=== PATIENT | male | born 1995 | race Caucasian/White ===

== ENCOUNTER 2018-08-29 22:36 | Emergency (ER) | payer OTHER, MEDICAID, SELFPAY ==
[2018-08-29 22:37] VITALS: BP 140/90; PULSE 91; RESP 18; TEMP 37.1; O2SAT 96; BMI 29.1
--- NOTE | 2018-08-29 23:15 | ED.VISSUMM ---
- ER Visit Summary Date of Service: 08/29/18 Chief Complaint: Dental pain History of Present Illness: The patient is a 23 M with dental pain. This has been going on for months. Secondary to the fracture. Patient is concerned for swelling and possible infection. No other associated symptoms. He does not have a dentist. Physical Examination: Afebrile and vital signs unremarkable. Patient has fractured teeth secondary to underlying decay, teeth #18 and 19. No tongue swelling or lesions. No mouth lesions. Airway intact. No tongue elevation. No trismus. No lymphadenopathy or meningeal signs. Skin normal. Test Results: None indicated Emergency Department Course and Treatment: Patient was treated with a course of Pen-Vee K and naproxen. He did receive 1 [place] here. He was referred to dental for follow-up. Treatment Plan: As above Disposition: Discharge Impression: 1. Dental pain This note was generated with [email or web address] dictation software. It may contain incorrect words, spelling, and punctuation that were not noted in review of the chart prior to signing ED Disposition - Plan for ED Patient: Referrals: Care Physician,No Primary [Primary Care Provider] -
--- NOTE | 2018-08-29 23:20 | ED.DCSUM_ITS ---
- ER Visit Summary Date of Service: 08/29/18 Chief Complaint: Dental pain History of Present Illness: The patient is a 23 M with dental pain. This has been going on for months. Secondary to the fracture. Patient is concerned for swelling and possible infection. No other associated symptoms. He does not have a dentist. Physical Examination: Afebrile and vital signs unremarkable. Patient has fractured teeth secondary to underlying decay, teeth #18 and 19. No tongue swelling or lesions. No mouth lesions. Airway intact. No tongue elevation. No trismus. No lymphadenopathy or meningeal signs. Skin normal. Test Results: None indicated Emergency Department Course and Treatment: Patient was treated with a course of Pen-Vee K and naproxen. He did receive 1 [place] here. He was referred to dental for follow-up. Treatment Plan: As above Disposition: Discharge Impression: 1. Dental pain This note was generated with [employer] dictation software. It may contain incorrect words, spelling, and punctuation that were not noted in review of the chart prior to signing ED Disposition - Plan for ED Patient: Referrals: Care Physician,No Primary [Primary Care Provider] -
[2018-08-29] MEDS: HYDROcodone Bitartrate/Apap 5/325 Tablet PO (23:21)
[2018-08-29] MEDS: Penicillin Vk 250 MG Tablet 500 MG PO (23:21)
--- NOTE | 2018-08-29 23:21 | ED.DEP ---
ED Disposition - Plan for ED Patient: Instructions: ED Tooth Pain Prescriptions: Naproxen [Naprosyn] 500 mg PO BID #20 tab Penicillin V Potassium 500 mg PO 4X/DAY #40 tab Referrals: Melissa Hernadez [NON-STAFF] -
== END 2018-08-29 23:26 | disposition home or self-care (01) ==
PROVIDERS: Emergency Provider Emergency Medicine
DX: K08.89 Other specified disorders of teeth and supporting structures (principal); K02.9 Dental caries, unspecified; S02.5XXA Fracture of tooth (traumatic), initial encounter for closed fracture; X58.XXXA Exposure to other specified factors, initial encounter; Y93.9 Activity, unspecified; Y92.9 Unspecified place or not applicable; Y99.9 Unspecified external cause status; Z72.0 Tobacco use
CPT/HCPCS: 99283